=== PATIENT | female | born 1945 | race Caucasian/White ===

== ENCOUNTER 2020-08-31 12:16 | Emergency (ER) | payer MEDICARE, OTHER ==
[~2020-08-31] VITALS: Ht 172.7 cm; Wt 101.2 kg
[~2020-08-31 12:16] MED LIST: MECL25 PO; OMEP20ER PO; PANT20 PO; PIOG15 PO; VERA120ER PO; [UNRECOGNIZED DRUG - REMARK] PO
[2020-08-31] MEDS ORDERED: AMLO5 PO (15:01)
[2020-08-31] MEDS ORDERED: LOSARTAN-HCTZ1 EAC5 PO (15:02)
[2020-08-31] MEDS ORDERED: METF500 PO (15:02)
== END 2020-08-31 16:43 | disposition home or self-care (01) ==
LOC: ER 12:16
DX: I10 Essential (primary) hypertension (principal); E11.9 Type 2 diabetes mellitus without complications; K21.9 Gastro-esophageal reflux disease without esophagitis; Z79.84 Long term (current) use of oral hypoglycemic drugs; Z79.899 Other long term (current) drug therapy; Z87.891 Personal history of nicotine dependence
CPT/HCPCS: 93005; 93010; 99284-25

== ENCOUNTER 2023-07-11 15:18 | Emergency (ER) | payer MEDICARE, OTHER ==
[~2023-07-11] VITALS: Ht 172.7 cm; Wt 103.9 kg
[~2023-07-11 15:18] MED LIST changes: +AMLO5 PO; +LOSARTAN-HCTZ1 EAC5 PO; +METF500 PO
[2023-07-11 17:04] LABS: BASOPHILS ABSOLUTE AUTO 0.03 K/mm3 (0.00-0.23); BASOPHILS PERCENT AUTO 0 % (0-2); EOSINOPHILS ABSOLUTE AUTO 0.08 K/mm3 (0.00-0.68); EOSINOPHILS PERCENT AUTO 1 % (0-6); Hematocrit 37.4 % (33.0-51.0); Hemoglobin 13.7 g/dL (11.5-16.0); IMMATURE GRAN ABSOLUTE AUTO 0.05 K/mm3 (0.00-0.10); IMMATURE GRAN PERCENT AUTO 1 % (0-1); LYMPHOCYTES ABSOLUTE AUTO 1.54 K/mm3 (0.84-5.20); LYMPHOCYTES PERCENT AUTO 18 % (21-46); MONOCYTES ABSOLUTE AUTO 0.46 K/mm3 (0.16-1.47); MONOCYTES PERCENT AUTO 6 % (4-13); Mean Corpuscular HGB 32.5 pg (26.0-34.0); Mean Corpuscular HGB Conc 36.6 g/dL (31.5-36.5); Mean Corpuscular Volume 89 fL (80-100); NEUTROPHILS ABSOLUTE AUTO 6.26 K/mm3 (1.96-9.15); NEUTROPHILS PERCENT AUTO 74 % (41-73); Platelet Count 180 K/mm3 (150-400); RDW Coefficient Variation 13.2 % (11.7-14.2); RDW Standard Deviation 42.8 fL (35.1-46.3); Red Blood Cell Count 4.21 M/mm3 (3.80-5.20); White Blood Cell Count 8.42 K/mm3 (4.00-11.30)
[2023-07-11 17:23] LABS: Albumin, Blood 4.3 g/dL (3.4-5.0); Albumin/Globulin Ratio 1.4 (0.8-1.8); Bilirubin, Total 0.5 mg/dL (0.1-1.0); Bun/Creatinine Ratio 25.3 (12.0-20.0); Calcium, Blood 9.5 mg/dL (8.5-10.1); Creatinine, Blood 0.79 mg/dL (0.40-1.00); Globulin, Blood 3.1 g/dL (2.2-4.0); Total Protein, Blood 7.4 g/dL (6.4-8.2)
[2023-07-11 18:15] LABS: International Normalized Ratio 0.98; Prothrombin Time Results 10.3 Sec (9.7-11.5)
[2023-07-11] MEDS ORDERED: EZALLOR SPRINKLE5 MG PO (19:59)
[2023-07-11] MEDS ORDERED: GLIM2 PO (19:59)
[2023-07-11 21:01] VITALS: BP 120/62
== END 2023-07-11 21:03 | disposition home or self-care (01) ==
LOC: ER 15:18
PROVIDERS: Physician Assistant
DX: R07.9 Chest pain, unspecified (principal); R42 Dizziness and giddiness; I10 Essential (primary) hypertension; E11.9 Type 2 diabetes mellitus without complications; J45.909 Unspecified asthma, uncomplicated; Z79.84 Long term (current) use of oral hypoglycemic drugs; Z79.899 Other long term (current) drug therapy; Z87.891 Personal history of nicotine dependence
CPT/HCPCS: 71046; 80053; 83690; 84484; 85025; 85610; 93005; 93010; 99285-25

== ENCOUNTER 2025-02-20 08:36 | Day surgery (SDC) | payer MEDICARE, OTHER ==
[~2025-02-20] VITALS: Ht 172.7 cm; Wt 103.7 kg
[~2025-02-20 08:36] MED LIST changes: +EZALLOR SPRINKLE5 MG PO; +GLIM2 PO; +Povidone-Iodine 450 DROP/30 ML Solution ONE; +Tetracaine HCl/Pf 0.5% Opth Soln 4 ml ONE; +Triamcinolone Inj Susp 40 MG / ML 1ML Vial ONE
[2025-02-20] MEDS ORDERED: Diazepam 10 MG Tab ONE (08:59)
--- NOTE | 2025-02-20 09:12 | NUR ---
02/20/25 0912 Rose Baltazar 0911: ANXIETY 01/07
--- NOTE | 2025-02-20 09:54 | NUR ---
02/20/25 0954 Brandy Terrazas VITALS AT 0953 BP:145/68 P:77 O2:95 10 LITERS OF BLOW BY OXYGEN
[2025-02-20] MEDS ORDERED: Balanced Salt Epinephrine Irrigation Solution 500 mL IR ONE (10:01)
[2025-02-20] MEDS ORDERED: Moxifloxacin HCL 0.5 MG/0.1 ML 0.4MLSYR RIGHTEYE ONE (10:01)
[2025-02-20] MEDS ORDERED: Lidocaine HCl/Pf 1% 5 ML VIAL XX ONE (10:01)
[2025-02-20 10:16] VITALS: BP 139/57
--- NOTE | 2025-02-20 10:29 | NUR ---
02/20/[address] AT SIDE [facility]. PT EDUCATING PT ON FASTING BLOOD SUGAR IT WAS 238 AT 0915. THE LAST A1C WAS IN 2022 AND IT WAS 5.6%.
== END 2025-02-20 10:39 | disposition home or self-care (01) ==
LOC: ORSCSDS 08:36
PROVIDERS: Ophthalmology
PROC: 08RJ3JZ Replacement of Right Lens with Synthetic Substitute, Percutaneous Approach (ICD-10-PCS; principal; 2025-02-20 10:00)
DX: E11.36 Type 2 diabetes mellitus with diabetic cataract (principal); H25.813 Combined forms of age-related cataract, bilateral; I10 Essential (primary) hypertension; Z79.84 Long term (current) use of oral hypoglycemic drugs; Z79.899 Other long term (current) drug therapy
CPT/HCPCS: 82947; A9270; J2003; J3301; V2632

== ENCOUNTER 2025-02-27 09:02 | Day surgery (SDC) | payer MEDICARE, OTHER ==
[~2025-02-27] VITALS: Ht 172.7 cm; Wt 104.0 kg
[~2025-02-27 09:02] MED LIST changes: +Balanced Salt Epinephrine Irrigation Solution 500 mL IR SCH; +Diazepam 5 MG Tab PO PRN; +Diazepam 5 MG Tab PO SCH; +Lidocaine HCl/Pf 1% 5 ML VIAL XX SCH; +Moxifloxacin HCL 0.5 MG/0.1 ML 0.4MLSYR LEFTEYE SCH; +Ondansetron 4 MG SoluTab MM PRN; +PHENYLEPHRINE\\TROPICAMIDE\\TETRACAINE OPHTHALMIC DILATING SOLN LEFTEYE PRN; +Povidone-Iodine 450 DROP/30 ML Solution LEFTEYE SCH; +Triamcinolone Inj Susp 40 MG / ML 1ML Vial INJ SCH
[2025-02-27] MEDS ORDERED: Diazepam 10 MG Tab ONE (09:14)
--- NOTE | 2025-02-27 09:50 | NUR ---
02/27/25 0950 Rosa Briscoe TETRACAINE IN AT 0942 PLEDGETT IN AT 0943 CALL LIGHT PLACED IN PT'S HAND PT REPORTED ANXIETY LEVEL AT 2-310 PRIOR TO ADMINISTRATION OF VALIUM 10MG PO @ 0940.
--- NOTE | 2025-02-27 10:39 | NUR ---
02/27/25 Vielka9 Kinza Ellis GC=505/59 P-71 SPO2- 100% 10L BLOW BY O2
[2025-02-27 10:53] VITALS: BP 135/74
== END 2025-02-27 11:01 | disposition home or self-care (01) ==
LOC: ORSCSDS 09:02
PROVIDERS: Ophthalmology
PROC: 08RK3JZ Replacement of Left Lens with Synthetic Substitute, Percutaneous Approach (ICD-10-PCS; principal; 2025-02-27 10:30)
DX: E11.36 Type 2 diabetes mellitus with diabetic cataract (principal); H25.812 Combined forms of age-related cataract, left eye; Z96.1 Presence of intraocular lens; H04.123 Dry eye syndrome of bilateral lacrimal glands; H43.812 Vitreous degeneration, left eye; H40.053 Ocular hypertension, bilateral; Z79.84 Long term (current) use of oral hypoglycemic drugs; Z87.891 Personal history of nicotine dependence; Z79.899 Other long term (current) drug therapy
CPT/HCPCS: 82947; A9270; J3301; V2632